=== PATIENT | female | born 1990 | race Caucasian/White ===

== ENCOUNTER 2017-12-02 17:54 | Emergency (ER) | payer BC ==
--- OUTSIDE RECORDS SUMMARY | 2017-12-02 18:02 | XMS REPORT ---
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 Active Onset: 05/22/2015 Acute sinusitis Kevin Gomez M.D. Active Onset: 03/25/2014 Acute bronchitis Henrique Yanes M.D. Active Onset: 01/04/2012 Acute upper respiratory infection Luis Okeefe M.D. Active Family History Date Family Member(s) Problem(s) Comments General Diabetes Mellitus, II PGM, relatives on mom's side. General Breast Cancer maternal aunt in her 50's. General No lung, colon, uterine, cervical or ovarian CA. Father HTN , depression, etoh. Mother Pre-diabetic. First Brother 1/2 brother. healthy. lives in [facility]. First Sister 1/2 sister. endometriosis- hysterectomy Maternal Aunt Breast CA in 50's. now in remission. 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 Smoking Patient has never smoked Exercise Type/Frequency Exercises sporadically. Current Seat Belt/Car Seat Always uses a seat belt Currently Active The patient is currently not sexually active Allergies, Adverse Reactions, Alerts Date Description Reaction Status Severity Comments 10/31/2010 NKDA active 01/12/2010 Seasonal active 01/12/2010 Environmental active Medications Medication Date Status Form Strength Qnty SIG Indications Ordering Provider Rosanne 11/26 Active Tablets 0.5/0.75/ 84tabs Take one Jackie C. 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 to four times daily. Famotidine 07/22 Active Tablets 20mg 60tabs take 1 -2 K21.9 Vicki Barrera tablet by yrn De Luna M.D. daily as needed Amoxicillin/Cla 05/22 Hx Tablets 875-125mg 20tabs 1 by J01.90 Kevin riveroanatanay /2015 mouth Darlow, Potassium - twice a M.D. 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 09/19 evidence /2015 of infection conjunct ivitis Physical 07/22 Hx dyspareun 625.0 Vicki Barrera Therapy - /2014 kiran De Luna Pelvic Floor - evaluate M.DNoé Therapy 09/19 and treat. Gianvi 07/13 Hx Tablets 3-0.02mg 84tabs take as Vicki LNoé /2014 Kathy Waller.Moise 11/26 Loryna 03/25 Hx Tablets 3-0.02mg take as directed [facility] [place] /2014 Azithromycin 03/25 Hx Tablets 250mg 6tabs 2 by 466.0 Henrique Arriola mouth Midura, - today and M.D. 07/22 1 by mouth x 4 days Cheratussin ac 03/25 Hx Syrup 100-10mg/ 120ml 1-2 466.0 Henrique Arriola 5ML teaspoon Midura, - every 4 M.D. 07/22 hours needed Work Excuse 01/03 Hx unable to 462 Viola work due James, - to [facility] 03/25 illness /201301/03/14 through 01/05/14 Pantoprazole 07/12 Hx Tablets 20mg 30tabs 1 po qd 530.[address] Neff, - [facility] 09/19 Azithromycin 01/03 Hx Tablets 250mg 6tabs 2 po 465.9 Smith A. /2011 today and Mee Okeefe - 1 po x 4 Physical 10/23 Hx premenstr Vicki L. Therapy [facility] Walter - crampsammy. M.DNoé 11/05 please evaluate and treat. mail to patient. Rowena Has 07/31 Hx Medical Vicki L. Not Been In illness. Walter, Tess From - M.DNoé 07/16/2010 Due 04/15 To Clarinex D 06/21 Hx 12H Samples 1 po bid 465.9 Vicki L. /2010 Kathy De Luna M.DNoé 07/17 Acetaminophen/C 06/21 Hx Tablets 300-30mg 20tabs 1-2 po at 465.9 Vicki L. odeine # hs. Kathy De Luna M.DNoé 07/17 Please Excuse 06/21 Hx Medical 465.9 Vicki L. From Class /2010 excuse. Walter, 06/18 Through - M.DNoé 06/22/201007/17 Azithromycin 06/21 Hx Tablets 250mg 6tabs 2 po Vicki L. /2010 today. 1 Walter - po daily M.D. 07/17 x Please Excuse 02/02 Hx diagnosed Henrique SanchezNoé Katz From with Polly Yanes. She - Mononucle M.D. Has Been 06/21 osis and will need to rest as much as possible. pu dt Ambien 01/30 Hx Tablets 10mg 30tabs 1 po q hs Vicki Barrera /2009 Kathy Tesfaye M.D. 06/21 School Excuse 10/13 Hx she may Eleazar Pierce /2008 Kathy Sanches M.D. 05/10 if she feels well Zithromax 08/18 Hx Capsules 250mg 6caps 2 Tabs PO 466.0 Wilma X1, Then Aishwarya, - 1 Tab PO EDUCATIONAL DIAGNOSTICIAN 09/26 qd X More Days Note 08/18 Hx 0units Rowena 466.0 Was Seen Kathy Neff By Co EDUCATIONAL DIAGNOSTICIAN 09/26 Today, Missed School And Today Due To Illness, May Not Return Until , 08/21/06 Physical 08/26 Hx treatment Henrique Zeinab Therapy and Farzana, - evaluatio M.Moise 09/26 n LT Hip /2006 And Thigh Pain Gym Excuse 08/26 Hx no gym Henrique Arriola /2005 for 2 Midura, - Weeks Due M.DNoé 09/26 To LT Hip /2006 Injury. Nasonex 05/05 Hx 50mcg 1units 2 Sprays Each Aishwarya, Kathy Nostril EDUCATIONAL DIAGNOSTICIAN 07/12 Claritin 05/05 Hx 10mg 1 qd [facility] 07/12 [facility] Out Of Gym 02/23 Hx Should Be Kaitlin Out Of [employer], - Gym Until Afnp-C 02/27 Next For Rib Pain Out Of Gym 12/29 Hx Should Be Kaitlin Out Of [employer], - Gym Afnp-C 01/02 Through Friday01/01/02 Due To Thumb Injury Birthcontrol Hx use as Unknown Pill /0000 directed - 01/12 Gianvi Hx Tablets 3-0.02mg 28tabs take as Vicki L. /0000 directed Kathy De Luna M.D. 03/25 Medications Administered in Office Medication Date Status Form Strength Qnty SIG Indications Ordering Provider TB Intradermal Administered Injection Wilma Test 014 ANDREW Neff Immunizations CPT Code Status Date Vaccine Reaction Lot # [id number] Given 04/04/2016 Influenza Vac, Quadrivalent, [id number] [address] Given 12/18/2015 Meningococcal Conjugate [id number] Vaccine,Serogroups For Intramuscular Use 24180 Given 12/14/2015 Tdap Tetanus, W Pertussis [id number] 07165 Given 09/20/2013 Varicella (Chicken Pox) 3 inch circular area [id number] Immunization noted today during a ppd read. area is pink and warm but not raised. Pt advised to call if worsens or does not improve. Jumana also looked and advised pt of the same. mp 09/22/13 80770 Given 06/26/2009 Gardasil vacine typs [id number] 6,11,16,18 3 dose schedule 32874 Given 12/03/1996 Oral Poliovirus Immunization 63519 Given 12/03/1996 MMR Virus Immunization 48513 Given 12/03/1996 DTP Immunization Vital Signs Date Vital Result Comment 2017 BP Systolic 114 mmHg BP Diastolic 72 mmHg Heart Rate 78 /min Body Temperature 97.7 F Height 62 inches 5'2" Weight 159.00 lb BMI (Body Mass Index) 29.1 kg/m2 12/04/2016 BP Systolic 116 mmHg BP Diastolic 74 mmHg Heart Rate 66 /min Body Temperature 97.9 F Respiratory Rate 16 /min Height 62 inches 5'2" Weight 157.50 lb BMI (Body Mass Index) 28.8 kg/m2 04/04/2016 BP Systolic 106 mmHg BP Diastolic 78 mmHg Heart Rate 84 /min Body Temperature 97.9 F Height 62 inches 5'2" Weight 152.12 lb BMI (Body Mass Index) 27.8 kg/m2 12/14/2015 BP Systolic 118 mmHg BP Diastolic 80 mmHg Heart Rate 66 /min Body Temperature 98.1 F Respiratory Rate 16 /min Height 62 inches 5'2" Weight 155.00 lb BMI (Body Mass Index) 28.3 kg/m2 05/22/2015 BP Systolic 120 mmHg BP Diastolic 80 mmHg Heart Rate 100 /min Body Temperature 99.1 F Respiratory Rate 20 /min O2 % BldC Oximetry 99 % Height 63 inches 5'3" Weight 146.00 lb BMI (Body Mass Index) 25.9 kg/m2 05/01/2015 BP Systolic 104 mmHg BP Diastolic 62 mmHg Heart Rate 80 /min Body Temperature 98.7 F Respiratory Rate 16 /min Height 63 inches 5'3" Weight 143.50 lb BMI (Body Mass Index) 25.4 kg/m2 09/28/2014 BP Systolic 110 mmHg BP Diastolic 76 mmHg Heart Rate 72 /min Body Temperature 99.0 F Respiratory Rate 16 /min Height 63 inches 5'3" Weight 141.12 lb BMI (Body Mass Index) 25.0 kg/m2 09/21/2014 BP Systolic 104 mmHg BP Diastolic 60 mmHg Heart Rate 64 /min Body Temperature 98.0 F Respiratory Rate 16 /min Height 63 inches 5'3" Weight 144.25 lb BMI (Body Mass Index) 25.5 kg/m2 09/19/2014 BP Systolic 124 mmHg BP Diastolic 80 mmHg Heart Rate 66 /min Body Temperature 97.2 F Respiratory Rate 16 /min Height 63 inches 5'3" Weight 142.50 lb BMI (Body Mass Index) 25.2 kg/m2 09/12/2014 BP Systolic 128 mmHg BP Diastolic 72 mmHg Heart Rate 80 /min Body Temperature 98.8 F Respiratory Rate 16 /min Height 63 inches 5'3" Weight 144.00 lb BMI (Body Mass Index) 25.5 kg/m2 07/22/2014 BP Systolic 120 mmHg BP Diastolic 80 mmHg Heart Rate 80 /min Body Temperature 98.2 F Respiratory Rate 18 /min Height 63 inches 5'3" Weight 151.00 lb BMI (Body Mass Index) 26.7 kg/m2 03/25/2014 BP Systolic 116 mmHg BP Diastolic 80 mmHg Heart Rate 96 /min Body Temperature 98.7 F Respiratory Rate 16 /min Height 62.25 inches 5'2.25" Weight 149.00 lb BMI (Body Mass Index) 27.0 kg/m2 01/03/2014 BP Systolic 110 mmHg BP Diastolic 70 mmHg Heart Rate 72 /min Body Temperature 98.1 F Respiratory Rate 16 /min Height 62.25 inches 5'2.25" Weight 145.00 lb BMI (Body Mass Index) 26.3 kg/m2 09/20/2013 BP Systolic 100 mmHg BP Diastolic 60 mmHg Heart Rate 68 /min Body Temperature 98.1 F Respiratory Rate 16 /min Height 62.25 inches 5'2.25" Weight 148.00 lb BMI (Body Mass Index) 26.8 kg/m2 07/12/2013 BP Systolic 100 mmHg BP Diastolic 70 mmHg Heart Rate 68 /min Body Temperature 98.4 F Respiratory Rate 16 /min Height 62.25 inches 5'2.25" Weight 147.00 lb BMI (Body Mass Index) 26.7 kg/m2 02/05/2012 BP Systolic 116 mmHg BP Diastolic 66 mmHg Heart Rate 72 /min Body Temperature 98.8 F Height 62.25 inches 5'2.25" Weight 135.00 lb BMI (Body Mass Index) 24.5 kg/m2 01/04/2012 BP Systolic 100 mmHg BP Diastolic 60 mmHg Heart Rate 76 /min Body Temperature 98.3 F Respiratory Rate 20 /min Height 62.25 inches 5'2.25" Weight 139.00 lb BMI (Body Mass Index) 25.2 kg/m2 11/06/2011 BP Systolic 110 mmHg BP Diastolic 70 mmHg Heart Rate 70 /min Body Temperature 98.0 F Height 62.25 inches 5'2.25" Weight 136.00 lb BMI (Body Mass Index) 24.7 kg/m2 06/27/2011 BP Systolic 120 mmHg BP Diastolic 70 mmHg Heart Rate 68 /min Body Temperature 98.9 F Height 62.25 inches 5'2.25" Weight 132.00 lb BMI (Body Mass Index) 23.9 kg/m2 05/03/2011 BP Systolic 104 mmHg BP Diastolic 64 mmHg Heart Rate 66 /min Body Temperature 98.6 F Height 62.25 inches 5'2.25" Weight 131.00 lb BMI (Body Mass Index) 23.8 kg/m2 04/15/2011 BP Systolic 100 mmHg BP Diastolic 60 mmHg Heart Rate 72 /min Body Temperature 99.1 F Height 62.25 inches 5'2.25" Weight 131.00 lb BMI (Body Mass Index) 23.8 kg/m2 10/31/2010 BP Systolic 116 mmHg BP Diastolic 72 mmHg Heart Rate 72 /min Body Temperature 98.3 F Height 62.25 inches 5'2.25" Weight 135.00 lb BMI (Body Mass Index) 24.5 kg/m2 Body Mass Index Percentile 77 % Weight Percentile 65th Height Percentile 21 % 07/17/2010 BP Systolic 110 mmHg BP Diastolic 78 mmHg Heart Rate 78 /min Body Temperature 99.7 F Height 62.25 inches 5'2.25" Weight 135.00 lb BMI (Body Mass Index) 24.5 kg/m2 Body Mass Index Percentile 78 % Weight Percentile 66th Height Percentile 21 % 06/21/2010 BP Systolic 112 mmHg BP Diastolic 72 mmHg Heart Rate 76 /min Body Temperature 98.0 F Height 62.25 inches 5'2.25" Weight 135.00 lb BMI (Body Mass Index) 24.5 kg/m2 Body Mass Index Percentile 78 % Weight Percentile 66th Height Percentile 21 % 02/15/2010 BP Systolic 100 mmHg BP Diastolic 60 mmHg Heart Rate 72 /min Body Temperature 98.7 F Height 62.25 inches 5'2.25" Weight 137.00 lb BMI (Body Mass Index) 24.9 kg/m2 Body Mass Index Percentile 80 % Weight Percentile 70th Height Percentile 21 % 01/27/2010 BP Systolic 94 mmHg BP Diastolic 60 mmHg Heart Rate 66 /min Body Temperature 98.6 F Height 62.25 inches 5'2.25" Weight 137.00 lb BMI (Body Mass Index) 24.9 kg/m2 Body Mass Index Percentile 81 % Weight Percentile 71st Height Percentile 21 % 01/12/2010 BP Systolic 100 mmHg BP Diastolic 60 mmHg Heart Rate 64 /min Body Temperature 98.6 F Respiratory Rate 24 /min Height 62.25 inches 5'2.25" Weight 138.00 lb BMI (Body Mass Index) 25.0 kg/m2 Body Mass Index Percentile 82 % Weight Percentile 72nd Height Percentile 21 % 06/26/2009 BP Systolic 116 mmHg BP Diastolic 66 mmHg Heart Rate 72 /min Body Temperature 98.4 F Height 62.25 inches 5'2.25" Weight 131.00 lb BMI (Body Mass Index) 23.8 kg/m2 Body Mass Index Percentile 76 % Weight Percentile 64th Height Percentile 22 % Right Visual Acuity Distance 20/100 w/o correction, pt says she usually wears Left Visual Acuity Distance 20/70 glasses 05/10/2009 Heart Rate 72 /min Body Temperature 98.6 F Weight 134.00 lb Weight Percentile 69th 10/12/2008 BP Systolic 104 mmHg BP Diastolic 64 mmHg Body Temperature 96.0 F Respiratory Rate 99.8 /min Weight 128.00 lb Weight Percentile 63rd 09/26/2006 BP Systolic 110 mmHg BP Diastolic 64 mmHg Heart Rate 78 /min Body Temperature 99.2 F Respiratory Rate 12 /min Weight 113.00 lb Weight Percentile 48th 08/18/2006 BP Systolic 100 mmHg BP Diastolic 60 mmHg Heart Rate 78 /min Body Temperature 99.4 F Weight 109.00 lb Weight Percentile 41st 06/18/2006 BP Systolic 100 mmHg BP Diastolic 60 mmHg Body Temperature 101.2 F Weight 118.00 lb Weight Percentile 60th 08/26/2005 BP Systolic 112 mmHg BP Diastolic 70 mmHg Heart Rate 60 /min Weight 120.00 lb Weight Percentile 72nd 05/05/2002 BP Systolic 102 mmHg BP Diastolic 64 mmHg Heart Rate 86 /min Body Temperature 97.0 F Weight 82.00 lb Weight Percentile 70th 02/23/2002 BP Systolic 108 mmHg BP Diastolic 50 mmHg Heart Rate 72 /min Weight 84.00 lb Weight Percentile 75th 12/24/2001 BP Systolic 112 mmHg BP Diastolic 60 mmHg Heart Rate 80 /min Weight 82.00 lb Weight Percentile 70th 02/08/1998 Body Temperature 97.3 F Weight 50.00 lb Weight Percentile 82nd 01/12/1998 Body Temperature 97.1 F Weight 49.00 lb Weight Percentile 80th 12/13/1997 BP Systolic 84 mmHg BP Diastolic 52 mmHg Heart Rate 98 /min Height 45 inches 3'9" Weight 47.00 lb Weight Percentile 73rd 03/01/1997 Body Temperature 97.9 F Weight 47.00 lb Weight Percentile 90th Results Test Date Test Result H/L Range Note Laboratory test finding 2017 TSH <pending> 0.5-5.0 Laboratory test finding 2017 Rapid Plasma Reagin <pending> (RPR) Qual Test Laboratory test finding 2017 HIV 1&2 Antibody <pending> Negative Screen (Fma) CBC Auto Diff 03/27/2017 White Blood Count 9.9 10^3/uL 3.5-10.8 Red Blood Count 4.14 10^6/uL 4.0-5.4 Hemoglobin 12.5 g/dL 12.0-16.0 Hematocrit 37 % 35-47 Mean Corpuscular Volume 89 fL 80-97 Mean Corpuscular Hemoglobin 30 pg 27-31 Mean Corpuscular HGB Conc 34 g/dL 31-36 Red Cell Distribution Width 12 % 10.5-15 Platelet Count 313 10^3/uL 150-450 Mean Platelet Volume 9 um3 7.4-10.4 Abs Neutrophils 6.7 10^3/uL 1.5-7.7 Abs Lymphocytes 2.2 10^3/uL 1.0-4.8 Abs Monocytes 0.5 10^3/uL 0-0.8 Abs Eosinophils 0.5 10^3/uL 0-0.6 Abs Basophils 0.1 10^3/uL 0-0.2 Abs Nucleated RBC 0 10^3/uL Granulocyte % 67.4 % 38-83 Lymphocyte % 22.2 % Low 25-47 Monocyte % 4.6 % 1-9 Eosinophil % 4.9 % 0-6 Basophil % 0.9 % 0-2 Nucleated Red Blood Cells % 0 Comp Metabolic Panel 03/27/2017 Sodium 139 mmol/L 133-145 Potassium 3.8 mmol/L 3.5-5.0 Chloride 105 mmol/L 101-111 Co2 Carbon Dioxide 28 mmol/L 22-32 Anion Gap 6 mmol/L 2-11 Glucose 107 mg/dL High 70-100 Blood Urea Nitrogen 9 mg/dL 6-24 Creatinine 0.77 mg/dL 0.51-0.95 BUN/Creatinine Ratio 11.7 8-20 Calcium 9.3 mg/dL 8.6-10.3 Total Protein 6.8 g/dL 6.4-8.9 Albumin 4.1 g/dL 3.2-5.2 Globulin 2.7 g/dL 2-4 Albumin/Globulin Ratio 1.5 1-3 Total Bilirubin 0.30 mg/dL 0.2-1.0 Alkaline Phosphatase 67 U/L 34-104 Alt 15 U/L 7-52 Ast 15 U/L 13-39 Egfr Non- 91.3 >60 Egfr 117.5 >60 1 Laboratory test finding 03/24/2017 Surgical Interface SEE RESULT BELOW 2, 3 Order Laboratory test finding 03/24/2017 Clotest SEE RESULT BELOW 4, 5 BCR/Abl Trans 9:22 Fish 12/20/2016 BCR/abl (Fish) Result Normal Summary BCR/abl (Fish) Result Table See Comment 6 BCR/abl (Fish) Specimen Blood BCR/abl (Fish) Referral Reason elevated WBC cou <SEE NOTE> 7 BCR/abl (Fish) Method See Comment 8 BCR/abl Results See Comment 9 BCR/abl (Fish) Interpretation See Comment 10 BCR/abl (Fish) Disclaimer See Comment 11 BCR/abl (Fish) Released By See Comment 12 Jak2 Mutation Analysis 12/20/2016 Jak2 [id number] Mutation See Comment 13 Blood Detection CBC Auto Diff 12/20/2016 White Blood Count 12.2 10^3/uL High 3.5-10.8 Red Blood Count 4.04 10^6/uL 4.0-5.4 Hemoglobin 12.0 g/dL 12.0-16.0 Hematocrit 36 % 35-47 Mean Corpuscular Volume 90 fL 80-97 Mean Corpuscular Hemoglobin 30 pg 27-31 Mean Corpuscular HGB Conc 33 g/dL 31-36 Red Cell Distribution Width 13 % 10.5-15 Platelet Count 371 10^3/uL 150-450 Mean Platelet Volume 8 um3 7.4-10.4 Abs Neutrophils 8.2 10^3/uL High 1.5-7.7 Abs Lymphocytes 3.0 10^3/uL 1.0-4.8 Abs Monocytes 0.6 10^3/uL 0-0.8 Abs Eosinophils 0.3 10^3/uL 0-0.6 Abs Basophils 0.1 10^3/uL 0-0.2 Abs Nucleated RBC 0 10^3/uL Granulocyte % 67.2 % 38-83 Lymphocyte % 24.3 % Low 25-47 Monocyte % 5.2 % 1-9 Eosinophil % 2.7 % 0-6 Basophil % 0.6 % 0-2 Nucleated Red Blood Cells % 0 Laboratory test finding 12/10/2016 C Reactive Protein 6.44 mg/L High < 5.00 14 LDH 144 U/L 140-271 CBC Auto Diff 12/10/2016 White Blood Count 14.2 10^3/uL High 3.5-10.8 Red Blood Count 4.21 10^6/uL 4.0-5.4 Hemoglobin 12.8 g/dL 12.0-16.0 Hematocrit 38 % 35-47 Mean Corpuscular Volume 91 fL 80-97 Mean Corpuscular Hemoglobin 30 pg 27-31 Mean Corpuscular HGB Conc 34 g/dL 31-36 Red Cell Distribution Width 13 % 10.5-15 Platelet Count 349 10^3/uL 150-450 Mean Platelet Volume 8 um3 7.4-10.4 Abs Neutrophils 10.1 10^3/uL High 1.5-7.7 Abs Lymphocytes 2.8 10^3/uL 1.0-4.8 Abs Monocytes 0.9 10^3/uL High 0-0.8 Abs Eosinophils 0.3 10^3/uL 0-0.6 Abs Basophils 0.1 10^3/uL 0-0.2 Abs Nucleated RBC 0.01 10^3/uL Granulocyte % 71.2 % 38-83 Lymphocyte % 20.0 % Low 25-47 Monocyte % 6.0 % 1-9 Eosinophil % 1.9 % 0-6 Basophil % 0.9 % 0-2 Nucleated Red Blood Cells % 0.1 Laboratory test finding 12/10/2016 Erythrocyte Sed Rate 13 mm/Hr 0-14 Rheumatoid Factor <15 IU/mL <15 15 Complete Blood Count 12/05/2016 WBC 9.7 x10^3/UL High 3.6-9.6 RBC 4.16 x10^6/UL 3.90-5.70 HGB 12.7 g/dL 12.1-17.2 HCT 38 % 36-50 MCV 91.0 fL 82.2-97.4 MCH 30.4 pg 27.6-33.3 MCHC 33.5 g/dL 33.0-35.5 RDW 13.1 % 11.6-13.7 PLT 376 x10^3/UL 150-400 MPV 7.2 fL Low 7.4-10.4 Gran # 6.3 x10^3/UL 1.5-7.2 Lymph# 2.9 x10^3/UL 0.7-4.9 Perkins# 0.5 x10^3/UL 0.1-0.9 Gran % 63.9 % 42.2-75.2 Lymph % 30.3 % 20.5-51.1 Perkins% 5.8 % 1.7-9.3 CBC With Differential/Platelet 04/04/2016 WBC 12.9 x10E3/uL High 3.4-10.8 16 RBC 4.13 x10E6/uL 3.77-5.28 16 Hemoglobin 12.2 g/dL 11.1-15.9 16 Hematocrit 36.8 % 34.0-46.6 16 MCV 89 fL 79-97 16 MCH 29.5 pg 26.6-33.0 16 MCHC 33.2 g/dL 31.5-35.7 16 RDW 12.9 % 12.3-15.4 16 Platelets 367 x10E3/uL 150-379 16 Neutrophils 57 % 16 Lymphs 29 % 16 Monocytes 5 % 16 Eos 9 % 16 Basos 0 % 16 Immature Cells TNP 16 Neutrophils (Absolute) 7.4 x10E3/uL High 1.4-7.0 16 Lymphs (Absolute) 3.7 x10E3/uL High 0.7-3.1 16 Monocytes(Absolute) 0.6 x10E3/uL 0.1-0.9 16 Eos (Absolute) 1.1 x10E3/uL High 0.0-0.4 16 Baso (Absolute) 0.1 x10E3/uL 0.0-0.2 16 Immature Granulocytes 0 % 16 Immature Grans (Abs) 0.0 x10E3/uL 0.0-0.1 16 NRBC TNP 16 Hematology Comments: [facility] 16 Laboratory test finding 12/14/2015 TSH 1.570 uIU/mL 0.450-4.500 Vitamin D, 25-Hydroxy 40.4 ng/mL 30.0-100.0 17 PDF [id number] SEE IMAGE Lipid Panel 12/14/2015 Cholesterol, Total 214 mg/dL High 100-199 Triglycerides 92 mg/dL 0-149 HDL Cholesterol 116 mg/dL >39 18 VLDL Cholesterol Jr 18 mg/dL 5-40 LDL Cholesterol Calc 80 mg/dL 0-99 Comment: [facility] Metabolic Panel (14), Comprehensive 12/14/2015 Glucose, Serum 84 mg/dL 65 -99 BUN 11 mg/dL 6-20 Creatinine, Serum 0.71 mg/dL 0.57-1.00 eGFR If NonAfricn Am 120 mL/min/1.73 >59 eGFR If Africn Am 138 mL/min/1.73 >59 BUN/Creatinine Ratio 15 8-20 Sodium, Serum 139 mmol/L 134-144 Potassium, Serum 4.3 mmol/L 3.5-5.2 Chloride, Serum 99 mmol/L 97-108 Carbon Dioxide, Total 23 mmol/L 18-29 Calcium, Serum 9.8 mg/dL 8.7-10.2 Protein, Total, Serum 7.2 g/dL 6.0-8.5 Albumin, Serum 4.5 g/dL 3.5-5.5 Globulin, Total 2.7 g/dL 1.5-4.5 A/G Ratio 1.7 1.1-2.5 Bilirubin, Total 0.3 mg/dL 0.0-1.2 Alkaline Phosphatase, S 74 IU/L 39-117 Ast (Sgot) 18 IU/L 0-40 Alt (SGPT) 18 IU/L 0-32 CBC With Differential/Platelet 12/14/2015 WBC 12.1 x10E3/uL High 3.4-10.8 RBC 4.24 x10E6/uL 3.77-5.28 Hemoglobin 12.4 g/dL 11.1-15.9 Hematocrit 38.0 % 34.0-46.6 MCV 90 fL 79-97 MCH 29.2 pg 26.6-33.0 MCHC 32.6 g/dL 31.5-35.7 RDW 13.5 % 12.3-15.4 Platelets 355 x10E3/uL 150-379 Neutrophils 66 % Lymphs 28 % Monocytes 4 % Eos 2 % Basos 0 % Immature Cells TNP Neutrophils (Absolute) 8.0 x10E3/uL High 1.4-7.0 Lymphs (Absolute) 3.4 x10E3/uL High 0.7-3.1 Monocytes(Absolute) 0.5 x10E3/uL 0.1-0.9 Eos (Absolute) 0.2 x10E3/uL 0.0-0.4 Baso (Absolute) 0.0 x10E3/uL 0.0-0.2 Immature Granulocytes 0 % Immature Grans (Abs) 0.0 x10E3/uL 0.0-0.1 NRBC TNP Hematology Comments: TNP Laboratory test 02/07/2015 Surgical Pathology SEE RESULT BELOW 19 finding CBC Auto Diff 09/22/2014 White Blood Count 11.7 10^3/uL High 4.8-10.8 Red Blood Count 3.92 10^6/uL Low 4.0-5.4 Hemoglobin 11.4 g/dL Low 12.0-16.0 Hematocrit 35 % 35-47 Mean Corpuscular Volume 90 fL 80-97 Mean Corpuscular Hemoglobin 29 pg 27-31 Mean Corpuscular HGB Conc 32 g/dL 31-36 Red Cell Distribution Width 12 % 10.5-15 Platelet Count 293 10^3/uL 150-450 Mean Platelet Volume 9 um3 7.4-10.4 Abs Neutrophils 6.1 10^3/uL 1.5-7.7 Abs Lymphocytes 4.5 10^3/uL 1.0-4.8 Abs Monocytes 0.7 10^3/uL 0-0.8 Abs Eosinophils 0.3 10^3/uL 0-0.6 Abs Basophils 0.1 10^3/uL 0-0.2 Abs Nucleated RBC 0.01 10^3/uL Granulocyte % 51.9 % 38-83 Lymphocyte % 38.7 % 25-47 Monocyte % 6.3 % 1-9 Eosinophil % 2.2 % 0-6 Basophil % 0.9 % 0-2 Nucleated Red Blood Cells % 0 Inr/Protime 09/22/2014 Inr 0.98 0.78-1.07 Laboratory test finding 09/22/2014 Activated Partial 30.4 seconds 26.0- 36.3 Thrombo Time Serum Negative Negative 20 Lactic Acid 1.1 mmol/L 0.5-2.2 Comp Metabolic Panel 09/22/2014 Alkaline Phosphatase 58 U/L 34-104 Sodium 139 mmol/L 133-145 Potassium 3.4 mmol/L Low 3.5-5.0 Chloride 106 mmol/L 101-111 Co2 Carbon Dioxide 26 mmol/L 22-32 Anion Gap 7 mmol/L 2-11 Glucose 81 mg/dL 70-100 Blood Urea Nitrogen 11 mg/dL 6-24 Creatinine 0.98 mg/dL High 0.51-0.95 BUN/Creatinine Ratio 11.2 8-20 Calcium 9.3 mg/dL 8.6-10.3 Total Protein 6.5 g/dL 6.4-8.9 Albumin 4.0 g/dL 3.2-5.2 Globulin 2.5 g/dL 2-4 Albumin/Globulin Ratio 1.6 1-3 Total Bilirubin 0.40 mg/dL 0.2-1.0 Alt 26 U/L 7-52 Ast 20 U/L 13-39 Egfr Non- 71.0 >60 Egfr 91.3 >60 21 Laboratory test finding 09/22/2014 C Reactive Protein 2.09 mg/L < 5.00 22 Stool Occult Blood SEE RESULT BELOW 23 Laboratory test finding 09/20/2014 Stool Culture SEE RESULT BELOW 24 O&P: Giardia/Cryptospor Screen SEE RESULT BELOW 25 E.coli O157:H7 Culture SEE RESULT BELOW 26 CBC Auto Diff 09/20/2014 White Blood Count 15.7 10^3/uL High 4.8-10.8 Red Blood Count 4.64 10^6/uL 4.0-5.4 Hemoglobin 13.4 g/dL 12.0-16.0 Hematocrit 42 % 35-47 Mean Corpuscular Volume 91 fL 80-97 Mean Corpuscular Hemoglobin 29 pg 27-31 Mean Corpuscular HGB Conc 32 g/dL 31-36 Red Cell Distribution Width 13 % 10.5-15 Platelet Count 320 10^3/uL 150-450 Mean Platelet Volume 9 um3 7.4-10.4 Abs Neutrophils 12.9 10^3/uL High 1.5-7.7 Abs Lymphocytes 2.3 10^3/uL 1.0-4.8 Abs Monocytes 0.5 10^3/uL 0-0.8 Abs Eosinophils 0 10^3/uL 0-0.6 Abs Basophils 0 10^3/uL 0-0.2 Abs Nucleated RBC 0.02 10^3/uL Granulocyte % 81.9 % 38-83 Lymphocyte % 14.4 % Low 25-47 Monocyte % 3.3 % 1-9 Eosinophil % 0.2 % 0-6 Basophil % 0.2 % 0-2 Nucleated Red Blood Cells % 0.1 Urinalysis Profile 09/20/2014 Urine Color Straw Urine Appearance Clear Urine Specific [place] 1.008 Low 1.010-1.030 Urine pH 6.0 5-9 Urine Urobilinogen Negative Negative Urine Ketones Trace Negative Urine Protein Negative Negative Urine Leukocytes Negative Negative Urine Blood Negative Negative Urine Nitrite Negative Negative Urine Bilirubin Negative Negative Urine Glucose Negative Negative Comp Metabolic Panel 09/20/2014 Sodium 135 mmol/L 133-145 Potassium 3.9 mmol/L 3.5-5.0 Chloride 103 mmol/L 101-111 Co2 Carbon Dioxide 25 mmol/L 22-32 Anion Gap 7 mmol/L 2-11 Glucose 98 mg/dL 70-100 Blood Urea Nitrogen 9 mg/dL 6-24 Creatinine 0.74 mg/dL 0.51-0.95 BUN/Creatinine Ratio 12.2 8-20 Calcium 9.9 mg/dL 8.6-10.3 Total Protein 7.8 g/dL 6.4-8.9 Albumin 4.8 g/dL 3.2-5.2 Globulin 3.0 g/dL 2-4 Albumin/Globulin Ratio 1.6 1-3 Total Bilirubin 0.50 mg/dL 0.2-1.0 Alkaline Phosphatase 68 U/L 34-104 Alt 17 U/L 7-52 Ast 16 U/L 13-39 Egfr Non- 98.1 >60 Egfr 126.2 >60 27 Laboratory test finding 09/20/2014 C Reactive Protein 5.87 mg/L High < 5.00 28 Comp Metabolic Panel 09/19/2014 Sodium 135 mmol/L 133-145 Potassium 4.2 mmol/L 3.5-5.0 Chloride 104 mmol/L 101-111 Co2 Carbon Dioxide 26 mmol/L 22-32 Anion Gap 5 mmol/L 2-11 Glucose 130 mg/dL High 70-100 Blood Urea Nitrogen 17 mg/dL 6-24 Creatinine 0.87 mg/dL 0.51-0.95 BUN/Creatinine Ratio 19.5 8-20 Calcium 9.4 mg/dL 8.6-10.3 Total Protein 6.6 g/dL 6.4-8.9 Albumin 4.2 g/dL 3.2-5.2 Globulin 2.4 g/dL 2-4 Albumin/Globulin Ratio 1.8 1-3 Total Bilirubin 0.40 mg/dL 0.2-1.0 Alkaline Phosphatase 66 U/L 34-104 Alt 16 U/L 7-52 Ast 17 U/L 13-39 Egfr Non- 81.4 >60 Egfr 104.7 >60 29 CBC Auto Diff 09/19/2014 White Blood Count 14.9 10^3/uL High 4.8-10.8 Red Blood Count 4.19 10^6/uL 4.0-5.4 Hemoglobin 12.2 g/dL 12.0-16.0 Hematocrit 38 % 35-47 Mean Corpuscular Volume 91 fL 80-97 Mean Corpuscular Hemoglobin 29 pg 27-31 Mean Corpuscular HGB Conc 32 g/dL 31-36 Red Cell Distribution Width 12 % 10.5-15 Platelet Count 317 10^3/uL 150-450 Mean Platelet Volume 9 um3 7.4-10.4 Abs Neutrophils 12.2 10^3/uL High 1.5-7.7 Abs Lymphocytes 2.0 10^3/uL 1.0-4.8 Abs Monocytes 0.7 10^3/uL 0-0.8 Abs Eosinophils 0.1 10^3/uL 0-0.6 Abs Basophils 0 10^3/uL 0-0.2 Abs Nucleated RBC 0.01 10^3/uL Granulocyte % 81.5 % 38-83 Lymphocyte % 13.1 % Low 25-47 Monocyte % 4.6 % 1-9 Eosinophil % 0.5 % 0-6 Basophil % 0.3 % 0-2 Nucleated Red Blood Cells % 0 Laboratory test finding 07/22/2014 Thin Prep W/HPV(Lsil/KURT/Asc) SEE NOTE 30 Ua - Micro (Fma) 07/22/2014 Appearance CLEAR Color YELLOW Glucose, Urine (Fma/CMC/CTX) NEG Bilirubin NEG Ketones NEG SP Grav 1.010 Blood NEG PH 7.0 Protein NEG Urobil 0.2 Nitrite NEG Leukocytes (Fma/CMC/Centrex) MODERATE Hyaline - /Lpf Granular - /Lpf WBC (Fma,Centrex) 22-24 RBC - Mucus - /Lpf Epith RARE /Lpf Bacteria 1+ /Hpf Amorphous - /Lpf Crystals, Fluid (Fma/CMC/CTX) - Z#Comments - Comprehensive Metabolic 07/22/2014 Glucose 92 mg/dL 70-100 31 BUN 14 mg/dL 4-18 31 Creatinine, Serum 0.76 mg/dL 0.50-1.10 31 Sodium 139 mmol/L 136-146 31 Potassium 4.8 mmol/L 3.5-5.3 31 Chloride 105 mmol/L 98-110 31 Carbon Dioxide 28 mmol/L 20-32 31 Albumin 4.7 g/dL 3.5-4.7 31 Protein, Total 7.8 g/dL 6.4-8.3 31 Calcium 9.8 mg/dL 8.4-10.4 31 Alkaline Phosphatase 89 U/L 10-118 31 Sgot (Ast) 26 U/L 3-40 31 SGPT (Alt) 22 U/L 7-50 31 Bilirubin, Total 0.40 mg/dL 0.30-1.20 31 Lipid Panel 07/22/2014 Cholesterol, Total 195 mg/dL <200 31 Triglycerides 98 mg/dL <150 31 HDL Cholesterol 91 mg/dL High 40-60 31 Chol/HDL Cholesterol 2.1 31, 32 LDL Cholesterol, Calc. 84 mg/dL 31, 33 LDL/HDL Cholesterol 0.9 31, 34 CBC 07/22/2014 WBC 9.2 x10E3/uL 4.3-10.9 31 RBC 4.27 x10E6/uL 3.80-5.30 31 Hemoglobin 12.7 g/dL 11.8-15.8 31 Hematocrit 39.1 % 35.0-47.0 31 MCV 91.6 fl 82.0-98.0 31 MCH 29.7 pg 27.5-33.5 31 MCHC 32.5 g/dL 32.0-36.0 31 RDW 12.8 % 11.5-14.5 31 Platelet Count 338 x10E3/uL 130-400 31 MPV 10.5 fl 8.6-12.6 31 Segmented Neutrophils 62.6 % 44.0-74.0 31 Lymphocytes 28.3 % 15.0-45.0 31 Monocytes 6.4 % 2.0-13.0 31 Eosinophils 2.3 % 0.0-6.0 31 Basophils 0.4 % 0.0-2.0 31 Neutrophil Absolute 5.8 x10E3/uL 1.4-7.0 31 Lymphocytes Absolute 2.6 x10E3/uL 1.0-3.4 31 Monocyte Absolute 0.6 x10E3/uL 0.2-1.0 31 Eosinophil Absolute 0.2 x10E3/uL 0.0-0.5 31 Basophil Absolute 0.0 x10E3/uL 0.0-0.2 31 Egfr (Calculated) 07/22/2014 Estimated GFR (CALCULATED) 31 Egfr 111 31, 35 Egfr, -Libyan 129 31, 36 Laboratory test finding 07/22/2014 TSH (Thyrotropin) 1.880 uIU/ml 0.350- 5.500 31 Vitamin D, 25 Oh 25.2 ng/mL Low 30.0-100.0 31, 37 Laboratory test finding 01/03/2014 Throat - Beta Strep Fma NEG@48HRS Egfr (Calculated) 08/16/2011 Estimated GFR (CALCULATED) 38 Egfr >60 38, 39 Egfr, -Libyan >60 38, 40 Comprehensive Metabolic 08/16/2011 Glucose 82 mg/dL 70-100 38 BUN 12 mg/dL 4-18 38 Creatinine, Serum 0.86 mg/dL 0.60-1.20 38 Sodium 139 mmol/L 136-146 38 Potassium 4.6 mmol/L 3.5-5.3 38 Chloride 105 mmol/L 98-110 38 Carbon Dioxide 28 mmol/L 20-32 38 Albumin 4.4 g/dL 3.7-5.6 38 Protein, Total 7.2 g/dL 6.3-8.6 38 Calcium 10.0 mg/dL 8.9-10.7 38 Alkaline Phosphatase 68 U/L 50-130 38 Sgot (Ast) 27 U/L 5-30 38 SGPT (Alt) 35 U/L 5-35 38 Bilirubin, Total 0.50 mg/dL 0.30-1.20 38 Lipid Panel 08/16/2011 Cholesterol, Total 203 mg/dL <200 38 Triglycerides 111 mg/dL <150 38 HDL Cholesterol 87 mg/dL High 40-60 38 Chol/HDL Cholesterol 2.3 38, 41 LDL Cholesterol, Calc. 94 mg/dL 38, 42 LDL/HDL Cholesterol 1.1 38, 43 CBC 08/16/2011 WBC 7.8 x10E3/uL 4.3-10.9 38 RBC 4.34 x10E6/uL 3.80-5.30 38 Hemoglobin 13.1 g/dL 11.8-15.8 38 Hematocrit 39.0 % 35.0-47.0 38 MCV 89.9 fl 82.0-98.0 38 MCH 30.2 pg 27.5-33.5 38 MCHC 33.6 g/dL 32.0-36.0 38 RDW 12.2 % 11.5-14.5 38 Platelet Count 301 x10E3/uL 130-400 38 MPV 10.8 fl High 6.5-10.5 38 Segmented Neutrophils 61.1 % 44.0-74.0 38 Lymphocytes 31.7 % 15.0-45.0 38 Monocytes 5.1 % 2.0-13.0 38 Eosinophils 1.8 % 0.0-6.0 38 Basophils 0.3 % 0.0-2.0 38 Neutrophil Absolute 4.8 x10E3/uL 1.4-7.0 38 Lymphocytes Absolute 2.5 x10E3/uL 1.0-3.4 38 Monocyte Absolute 0.4 x10E3/uL 0.2-1.0 38 Eosinophil Absolute 0.1 x10E3/uL 0.0-0.5 38 Basophil Absolute 0.0 x10E3/uL 0.0-0.2 38 PT + PTT No Therpy/Unkn 08/16/2011 PTT 32.7 seconds 23.7-35.5 38 PT (No Therapy/Unknown) 13.3 seconds 11.7-14.5 38, 44 Inr 1.0 38, 45 Laboratory test 08/16/2011 TSH (Thyrotropin) 1.330 uIU/ml 0.350-5.500 38 finding GC/Chlamydia Probe Or 06/27/2011 Chlamydia Amplified NEGATIVE Urine(Ce Probe GC Amplified Probe NEGATIVE Ua - Micro (a) 06/27/2011 Appearance clear Color yellow Glucose, Urine (Fma/CMC/CTX) neg Bilirubin neg Ketones neg SP Grav 1.020 Blood neg PH 7.0 Protein neg Urobil 0.2 Nitrite neg Leukocytes (Fma/CMC/Centrex) trace Hyaline - /Lpf Granular - /Lpf WBC (Fma,Centrex) 3-5 RBC 0-1 Mucus (Fma/CBC/Centrex) - /Lpf Epith few /Lpf Bacteria trace /Hpf Amorphous (Fma/CMC/Centrex) - /Lpf Crystals, Fluid (Fma/CMC/CTX) - Z#Comments - Laboratory test 06/27/2011 Thin Prep SEE NOTE 46 finding W/HPV(Lsil/KURT/Asc) Laboratory test 05/03/2011 Throat Culture Normal 47 finding pharyngea <SEE NOTE> Laboratory test 05/03/2011 Quickstrep NEG Negative finding Laboratory test 04/16/2011 Amylase 55 U/L 20-105 finding Comprehensive 04/16/2011 Albumin 4.5 g/dL 3.8-5.5 Metabolic Prof Alk. Phos. 52 U/L 30-110 Alt (SGPT) 20 U/L 7-35 Ast (Sgot) 18 U/L 5-34 BUN 15 mg/dL 6-26 Calcium 9.3 mg/dL 8.6-10.2 Chloride 105 mEq/L 94-112 Creatinine 1.1 mg/dL 0.6-1.4 Carbon Dioxide 21 mEq/L 21-32 Glucose 93 mg/dL 70-105 Sodium 138 mEq/L 134-149 Total Bilirubin 0.3 mg/dL 0.2-1.3 Total Protein 6.8 g/dL 6.3-8.1 Potassium 4.3 mEq/L 3.6-5.5 Globulin 2.3 g/dL 2.0-4.8 A/G Ratio 1.9 Calc 0.6-2.2 BUN/Creat Ratio 14.0 Calc 8.0-36.0 CBC Electronic (a) 04/16/2011 WBC 6.5 3.6-9.6 RBC 4.25 3.90-5.70 Hemoglobin (Fma/CMC/CTX) 13.3 g/dL 12.1 - 17.2 Hematocrit (Fma/CMC/CTX) 38.0 % 36.1 - 50.3 Platelets 272 10^3/ul 150-400 Lymph% 26.6 20.5-51.1 Mixed% 4.6 Neutrophils % 68.8 Mean Corpuscular Vol 89 82.2-97.4 Mean Corpuscular Hemoglobin 31.3 27.6-33.3 Mean Corpuscular Hemo Concen 35.0 32.0-36.0 RDW 11.7 11.6-13.7 Mean Platelet Volume 8.4 6.5-11.0 Laboratory test finding 04/16/2011 Lipase 13 U/L 1-64 48 Ua - Micro ([facility]) 04/15/2011 Appearance clear Color yellow Glucose neg Bilirubin neg Ketones 15mg/dL SP Grav <1.005 Blood small PH 6.0 Protein neg Urobil 0.2 Nitrite neg Leukocytes (Fma/CMC/Centrex) trace Hyaline - /Lpf Granular - /Lpf WBC ([facility],Centrex) 8-10 RBC 2-3 Mucus - /Lpf Epith occass /Lpf Bacteria trace /Hpf Amorphous - /Lpf Crystals, Fluid (Fma/CMC/CTX) - Z#Comments - Laboratory test finding 10/31/2010 Sed Rate (a/CMC/Centrex) 8 mm CBC Electronic ([facility]) 10/31/2010 WBC 8.3 3.6-9.6 RBC 4.3 3.90-5.70 Hemoglobin (Fma/CMC/CTX) 12.9 g/dL 12.1 - 17.2 Hematocrit (a/CMC/CTX) 38.5 % 36.1 - 50.3 Platelets 359 10^3/ul 150-400 Lymph% 28.5 20.5-51.1 Mixed% 6.7 Neutrophils % 64.8 Mean Corpuscular Vol 90 82.2-97.4 Mean Corpuscular Hemoglobin 30.1 27.6-33.3 Mean Corpuscular Hemo Concen 33.6 32.0-36.0 RDW 11.1 Low 11.6-13.7 Mean Platelet Volume 9 6.5-11.0 Comprehensive Metabolic 07/17/2010 Glucose 83 mg/dL 70-100 49 BUN 9 mg/dL 4-18 49 Creatinine, Serum 0.81 mg/dL 0.60-1.20 49 Sodium 139 mmol/L 136-146 49 Potassium 4.2 mmol/L 3.5-5.3 49 Chloride 104 mmol/L 98-110 49 Carbon Dioxide 29 mmol/L 20-32 49 Albumin 4.6 g/dL 3.7-5.6 49 Protein, Total 7.4 g/dL 6.3-8.6 49 Calcium 9.8 mg/dL 8.9-10.7 49 Alkaline Phosphatase 66 U/L 50-130 49 Sgot (Ast) 27 U/L 5-30 49 SGPT (Alt) 29 U/L 5-35 49 Bilirubin, Total 0.20 mg/dL Low 0.30-1.20 49 Feflex Diff+Morph For CBC4D 07/17/2010 Segmented Neutrophils 69.0 % 44.0- 74.0 49 Band 2.0 % 0.0-4.0 49 Lymphocytes 21.0 % 15.0-45.0 49 Monocytes 6.0 % 2.0-13.0 49 Eosinophils 2.0 % 0.0-6.0 49 Basophils 0.0 % 0.0-2.0 49 Neutrophil Absolute 4.7 x10E3/uL 1.4-7.0 49 Lymphocytes Absolute 1.4 x10E3/uL 1.0-3.4 49 Monocyte Absolute 0.4 x10E3/uL 0.2-1.0 49 Eosinophil Absolute 0.1 x10E3/uL 0.0-0.5 49 Basophil Absolute 0.0 x10E3/uL 0.0-0.2 49 Egfr (Calculated) 07/17/2010 Estimated GFR (CALCULATED) 49 Egfr >60 49, 50 Egfr, -Libyan >60 49, 51 CBC W/Manual Diff 07/17/2010 WBC 6.6 x10E3/uL 4.3-10.9 49 RBC 4.20 x10E6/uL 3.80-5.30 49 Hemoglobin 12.6 g/dL 11.8-15.8 49 Hematocrit 37.5 % 35.0-47.0 49 MCV 89.3 fl 82.0-98.0 49 MCH 30.0 pg 27.5-33.5 49 MCHC 33.6 g/dL 32.0-36.0 49 RDW 12.4 % 11.5-14.5 49 Platelet Count 264 x10E3/uL 130-400 49 MPV 10.3 fl 6.5-10.5 49 Manual Differential PERFORMED 49 Hepatitis Acute Panel 07/17/2010 Hep B Surface NON-REACTIVE Non-Reactive 49 Antigen Hep C Antibody NON-REACTIVE Non-Reactive 49 Hep C S/Co Ratio 0.1 0.0-0.7 49 Hep B Core Antibody Igm NON-REACTIVE Non-Reactive 49 Hep A Antibody Igm NON-REACTIVE Non-Reactive 49 Anti Viral AB Screen 07/17/2010 HIV 1/O/2 Abs-Index Value <1.00 <1.00 49 , 52 HIV 1/O/2 Abs, Qual Non Reactive 49, 53 Ebv Acute Infection Abs 07/17/2010 Ebv Ab Vca, IgM 1.0 AI High 0.0-0.8 49 , 54 Ebv Early Antigen Ab, IgG <0.2 AI 0.0-0.8 49, 55 Ebv Ab Vca, IgG 4.9 AI High 0.0-0.8 49, 56 Ebv Nuclear Antigen Ab, IgG 7.9 AI High 0.0-0.8 49, 57 Interpretation: SEE NOTE 49, 58 CMV Abs Igg/Igm 07/17/2010 CMV Ab, IgG (Cytomegalovirus) <0.9 index 0.0- 0.8 49, 59 CMV Ab, IgM Cytomegalovirus <0.9 index 0.0-0.8 49, 60 Laboratory test finding 07/17/2010 [facility] Test NEGATIVE Negative 49 Laboratory test finding 06/21/2010 Vitamin D, 25 Oh 39.4 ng/mL 32.0- 100.0 61 Laboratory test finding 02/15/2010 Quickstrep NEGATIVE Negative Throat - Beta Strep Fma NEG @ 48HRS CBCM-a 01/27/2010 WBC 8.5 3.6-9.6 RBC 4.07 3.90-5.70 Hemoglobin (Fma/CMC/CTX) 12.9 g/dL 12.1 - 17.2 Hematocrit (Fma/CMC/CTX) 37.4 % 36.1 - 50.3 Mean Corpuscular Vol 91.9 82.2-97.4 Mean Corpuscular Hemoglobin 31.7 27.6-33.3 Mean Corpuscular Hemo Concen 34.5 33.0-36.0 Platelets 247 10^3/ul 150-400 RDW 11.7 11.6-13.7 Mean Platelet Volume 10.2 7.4-10.4 Neutrophil 44 Band 7 Lymphocytes 12 Monocyte 1 Eosinophils 1 Atypical Lymph 35 Comment rbc/plt normal Laboratory test finding 01/27/2010 TSH 2.09 mIU/L 0.50-6.00 Free T4 1.00 ng/dL 0.75-1.54 Laboratory test finding 01/27/2010 Monospot (Fma/Centrex) positive Laboratory test finding 01/12/2010 Antistreptolysin O AB 109.4 IU/mL 0.0- 200.0 Comprehensive Metabolic 08/02/2009 Glucose 83 mg/dL 70-100 62 BUN 16 mg/dL 4-18 62 Creatinine, Serum 0.90 mg/dL 0.60-1.20 62 Sodium 141 mmol/L 136-146 62 Potassium 4.1 mmol/L 3.5-5.3 62 Chloride 106 mmol/L 98-110 62 Carbon Dioxide 27 mmol/L 20-32 62 Albumin 4.1 g/dL 3.7-5.6 62 Protein, Total 6.5 g/dL 6.3-8.6 62 Calcium 9.4 mg/dL 8.9-10.7 62 Alkaline Phosphatase 89 U/L 50-130 62 Sgot (Ast) 25 U/L 5-30 62 SGPT (Alt) 17 U/L 5-35 62 Bilirubin, Total 0.60 mg/dL 0.30-1.20 62 Lipid Panel 08/02/2009 Cholesterol, Total 132 mg/dL <200 62 Triglycerides 49 mg/dL <150 62 HDL Cholesterol 57 mg/dL 40-60 62 Chol/HDL Cholesterol 2.3 62, 63 LDL Cholesterol, Calc. 65 mg/dL 62, 64 LDL/HDL Cholesterol 1.1 62, 65 Laboratory test finding 08/02/2009 TSH (Thyrotropin) 1.350 uIU/ml 0.350- 5.500 62 CBC 08/02/2009 WBC 10.3 x103 4.3-10.9 62 RBC 4.40 x106 3.80-5.30 62 Hemoglobin 13.6 g/dL 11.8-15.8 62 Hematocrit 40.6 % 35.0-47.0 62 MCV 92.3 fl 82.0-98.0 62 MCH 30.9 pg 27.5-33.5 62 MCHC 33.5 g/dL 32.0-36.0 62 RDW 12.8 % 11.5-14.5 62 Platelet Count 281 x103 130-400 62 MPV 10.8 fl High 6.5-10.5 62 Segmented Neutrophils 68.4 % 44.0-74.0 62 Lymphocytes 23.5 % 15.0-45.0 62 Monocytes 6.0 % 2.0-13.0 62 Eosinophils 1.8 % 0.0-6.0 62 Basophils 0.3 % 0.0-2.0 62 Neutrophil Absolute 7.0 x103 1.4-7.0 62 Lymphocytes Absolute 2.4 x103 1.0-3.4 62 Monocyte Absolute 0.6 x103 0.2-1.0 62 Eosinophil Absolute 0.2 x103 0.0-0.5 62 Basophil Absolute 0.0 x103 0.0-0.2 62 Ua - Micro (Fma) 06/26/2009 Appearance clear Color yellow Glucose neg Bilirubin neg Ketones trace SP Grav 1.025 Blood neg PH 7.0 Protein neg Urobil 0.2 Nitrite neg Leukocytes (Fma/CMC/Centrex) small Hyaline - /Lpf Granular - /Lpf WBC (Fma,Centrex) 8-10 RBC 1-2 Mucus - /Lpf Epith occass /Lpf Bacteria trace /Hpf Laboratory test finding 05/10/2009 Quickstrep negative Negative Throat - Beta Strep Fma negative@48hrs Laboratory test finding 10/12/2008 Quickstrep POS Negative Laboratory test finding 09/26/2006 Flu A&B NEGATIVE Negative Laboratory test finding 06/18/2006 Throat - Beta Strep NEG @ 48 HOURS Fma Quickstrep NEGATIVE Negative 1 Because ethnic data is not always readily available, this report includes an eGFR for both -Americans and non- Americans. The National Kidney Disease Education Program (NKDEP) does not endorse the use of the MDRD equation for patients that are not between the ages of 18 and 70, are , have extremes of body size, muscle mass, or nutritional status, or are non- or non-. According to the National Kidney Foundation, irrespective of diagnosis, the stage of the disease is based on the level of kidney function: Stage Description GFR(mL/min/1.73 m(2)) 1 Kidney damage with normal or decreased GFR 90 2 Kidney damage with mild decrease in GFR 60-89 3 Moderate decrease in GFR 30-59 4 Severe decrease in GFR 15-29 5 Kidney failure <15 (or dialysis) 2 [id number] 3 SEE RESULT BELOW Name: ROWENA IRIZARRY : [address]: Ebenezer Vera MD Acct: [id number] Unit: [id number] AGE: 26 Location: ENDOC Re03/24/17 SEX: F Status: DEP REF SPEC: [id number] DAY: 03/24/17-[address] [facility] [address]: Ebenezer Vera MD REQ: [id number] RECD: 03/24/17-9431 STATUS: ARY MORSE DR: Vicki De Luna MD _ ORDERED: LEVEL 4/2 COMMENTS: [id number] FINAL DIAGNOSIS 1. Duodenum, third portion, biopsy: -- Benign small intestinal mucosa with no significant pathologic abnormalities. -- No evidence of villous blunting or increased intraepithelial lymphocytes. 2. Stomach, body, biopsy: -- Body-type gastric mucosa with no significant pathologic abnormalities. -- No evidence of Helicobacter pylori organisms. CLINICAL HISTORY Screening/Surveillance for malignancy in asymptomatic patient. Diet ? non- select, weight up and down. Digestive issues whole life, constipation POST-OPERATIVE DIAGNOSIS Esophagus, stomach and duodenum ? all normal. Conclusions/Plan: Normal EGD; abdominal pain; review for irritable bowel syndrome GROSS DESCRIPTION 1. The specimen is received in formalin labeled, Third Portion Duodenum, and consists of three speckled abraham-pink irregular to polypoid soft tissue fragments ranging from 0.4 x 0.3 x 0.2 cm to 0.6 x 0.3 x 0.2 cm which are entirely submitted in one cassette. 2. The specimen is received in formalin labeled, Biopsy Gastric Body, and consists of two speckled abraham-white irregular to polypoid soft tissue fragments averaging 0.4 by up to 0.3 x 0.2 cm are entirely submitted in one cassette. Signed (signature on file) Viola Guy MD 1111 END OF REPORT * ML=Testing performed at Main Lab DEPARTMENT OF PATHOLOGY, [address] [place] [address] Pedro Luis Long M.D. Director [facility] # [id number] 4 [id number] SEE RESULT BELOW Name: ROWENA IRIZARRY : [address]: Ebenezer Vera MD Acct: [id number] Unit: [id number] AGE: 26 Location: ENDOC Re03/24/17 SEX: F Status: DEP REF SPEC: [id number] DAY: 03/24/17-[address] [facility] [address]: Ebenezer Vera MD REQ: [id number] RECD: 03/24/17 STATUS: COMP PATRICIAHR DR: Vicki De Luna MD _ [facility] ORDERED: Clotest COMMENTS: [id number] Procedure Result Reported Site Clotest Final 03/25/17- 805 ML Clotest Negative * ML - MAIN LAB ([facility]) . END OF REPORT * ML=Testing performed at Main Lab DEPARTMENT OF PATHOLOGY, [address] [place] [address] Pedro Luis Long M.D. Director [facility] # [id number] 6 Abnormality Name Result %Abn Cutoff (%) t(9;22) ABL1/BCR fusion Normal <0.6% 7 elevated WBC count 8 Locus and probes [Strategy;#Nuclei;Class] 9q34(ABL1),22q11.2(BCR) [DFISH;500;ASR] Probe strategy includes: DFISH=dual color, double fusion. 9 nuc miranda(ABL1,BCR)x2[500] Of 500 nuclei, 0% had fusion of BCR and ABL1. 10 The result is within normal limits for the BCR and ABL1 gene regions. 11 Analyte Specific Reagent (ASR). This test was developed using an analyte specific reagent. Its performance characteristics were determined by [facility] in a manner consistent with CLIA requirements. This test has not been cleared or approved by the U.S. Food and Drug Administration. This FISH test does not rule out other chromosome abnormalities. 12 RESULT: Jazz Diaz D.O. Test Performed by: [address] [address] 13 Peripheral blood, JAK2 V617F mutation analysis: Negative for JAK2 V617F. A negative [id number] test result does not exclude the possibility of a myeloproliferative neoplasm (MPN). If clinical suspicion is high for primary myelofibrosis (PMF) or essential thrombocythemia (ET), consider additional testing for CALR Mutational Analysis (test ID: CALR), followed by MPL Exon 10 Mutational Detection (test ID: MPLB, MPLM, or MPLVA), if both [id number] and CALR tests are negative. If clinical suspicion is high for polycythemia vera, the test JAK2 Exon 12 and Other Non-V617F Mutational Detection (test ID: JAKXB or JAKXM) could be considered. Clinicopathologic correlation is recommended for a definitive diagnosis. Signing Pathologist: Melissa Bacon M.D. ADDITIONAL INFORMATION Method summary - JAK2 V617F analysis: Quantitative, allele-specific polymerase chain reaction (PCR) assay was performed using extracted genomic DNA to evaluate for the point mutation causing JAK2 V617F. The analytic sensitivity of this assay has been determined at 0.06% (see [facility] Omnisio Interpretive Handbook for method details). This test was developed and its performance characteristics determined by [facility] in a manner consistent with CLIA requirements. This test has not been cleared or approved by the U.S. Food and Drug Administration. Test Performed by: [address] [address] 14 Acute inflammation: >10.00 15 Test Performed by: [facility] - [address] [address] 16 1 lav 17 Vitamin D deficiency has been defined by the [place] of Medicine and an Endocrine Society practice guideline as a level of serum 25-OH vitamin D less than 20 ng/mL (1,2). The Endocrine Society went on to further define vitamin D insufficiency as a level between 21 and 29 ng/mL (2). 1. IOM ([place] of Medicine). 2010. Dietary reference intakes for calcium and D. [place]: The National Academies Press. 2. Mai HUMMEL, Aliya MARIE, Camilo MONTOYA, et al. Evaluation, treatment, and prevention of vitamin D deficiency: an Endocrine Society clinical practice guideline. JCEM. 2010; 96(7):1911-30. 18 According to ATP-III Guidelines, HDL-C >59 mg/dL is considered a negative risk factor for CHD. 19 SEE RESULT BELOW Name: ROWENA IRIZARRY : [address]: Antoni Sales MD Acct: [id number] Unit: [id number] AGE: 24 Location: ENDOCEC Re02/07/15 SEX: F Status: REG REF SPEC: [id number] DAY: 02/07/15- SUBM DR: Antoni Sales MD REQ: [id number] RECD: 02/07/151256 STATUS: ARY MORSE DR: Vicki De Luna MD _ ORDERED: LEVEL IV FINAL DIAGNOSIS Terminal ileum, biopsy: -- Benign small intestinal mucosa with no significant pathologic abnormalities. -- No evidence of villous blunting or increased intraepithelial lymphocytes. CLINICAL HISTORY Right lower quadrant pain and tenderness; change in bowel habit, rectal bleeding POST-OPERATIVE DIAGNOSIS Colonoscopy to terminal ileum, normal sigmoid, ileocecal valve, colon, rectum , no hemorrhoids; biopsy terminal ileum. Normal exam, no recall GROSS DESCRIPTION The specimen is received in formalin labeled, Biopsy Terminal Ileum, and consists of a 0.7 x 0.5 x 0.1 cm aggregate of abraham-pink irregular soft tissue fragments, which is submitted entirely in one cassette. Signed (signature on file) Viola Guy MD 07/20 1509 END OF REPORT * ML=Testing performed at Main Lab DEPARTMENT OF PATHOLOGY, [address] [place] [address] Pedro Luis Long M.D. Director [facility] # [id number] 20 This test detects intact HCG only and is indicated for the early detection of . 21 Because ethnic data is not always readily available, this report includes an eGFR for both -Americans and non- Americans. The National Kidney Disease Education Program (NKDEP) does not endorse the use of the MDRD equation for patients that are not between the ages of 18 and 70, are , have extremes of body size, muscle mass, or nutritional status, or are non- or non-. According to the National Kidney Foundation, irrespective of diagnosis, the stage of the disease is based on the level of kidney function: Stage Description GFR(mL/min/1.73 m(2)) 1 Kidney damage with normal or decreased GFR 90 2 Kidney damage with mild decrease in GFR 60-89 3 Moderate decrease in GFR 30-59 4 Severe decrease in GFR 15-29 5 Kidney failure <15 (or dialysis) 22 Acute inflammation: >10.00 23 SEE RESULT BELOW Name: ROWENA IRIZARRY : [address]: Kuldip Palacio MD Acct: [id number] Unit: [id number] AGE: 23 Location: ED Re09/22/14 SEX: F Status: REG ER SPEC: [id number] DAY: 09/22/[address] [facility] [address]: Kulwant Henry MD REQ: [id number] RECD: 09/22/14 STATUS: COMP [facility] DR: [facility] Vicki De Luna MD _ SOURCE: STOOL SPDESC: ORDERED: Hemoccult Procedure Result Verified Site Stool Specimen Description Final 09/22/142254 ML Test not performed Stool Occult Blood Final 09/22/142254 ML Stool Occult Blood Negative * ML - MAIN LAB ([facility]) . END OF REPORT * ML=Testing performed at Main Lab DEPARTMENT OF PATHOLOGY, [address] [place] [address] Pedro Luis Long M.D. Director [facility] # [id number] 24 SEE RESULT BELOW Name: ROWENA IRIZARRY : [address]: Tone Melo Acct: [id number] Unit: [id number] AGE: 23 Location: ED Re09/19/14 SEX: F Status: DEP ER SPEC: [id number] DAY: 09/20/[address]: Tone Marcum DO REQ: [id number] RECD: 09/20/14 STATUS: [facility] DR: Vicki De Luna MD _ SOURCE: STOOL SPDESC: ORDERED: E.coli O157:H7, Stool Culture, O P: Gineida/Crypt Procedure Result Verified Site E.coli O157:H7 Culture PENDING Stool Culture PENDING Stool Specimen Description Final 09/20/14- 0353 ML Stool Color Reddish Brown Stool Form Nonformed Stool Consistency Bloody Shiga Toxin 1 2 Final 09/21/14- 1105 ML Organism 1 Negative Shiga Toxin 1 2 Immunochromatographic Assay O P: Giardia/Cryptospor Screen PENDING * ML - MAIN LAB ([facility]) . END OF REPORT * ML=Testing performed at Main Lab DEPARTMENT OF PATHOLOGY, [address] [place] [address] Pedro Luis Long M.D. Director [facility] # [id number] 25 SEE RESULT BELOW Name: ROWENA IRIZARRY : [address]: Tone Melo Acct: [id number] Unit: [id number] AGE: 23 Location: ED Re09/19/14 SEX: F Status: DEP ER SPEC: [id number] DAY: 09/20/[address]: Tone LAIRDQ: [id number] RECD: 09/20/14 STATUS: RES [facility] DR: Vicki De Luna MD _ SOURCE: STOOL SPDESC: ORDERED: E.coli O157:H7, Stool Culture, O P: Giar/Crypt Procedure Result Verified Site E.coli O157:H7 Culture PENDING Stool Culture PENDING Stool Specimen Description Final 09/20/14- 0353 ML Stool Color Reddish Brown Stool Form Nonformed Stool Consistency Bloody Shiga Toxin 1 2 Final 09/21/14- 1105 ML Organism 1 Negative Shiga Toxin 1 2 Immunochromatographic Assay O P: Giardia/Cryptospor Screen Final 09/21/14- 1105 ML Organism 1 Neg Cryptosporidium/Giardia Giardia and cryptosporidium antigen testing performed by enzyme immunoassay. If patient is immunocompromised or has traveled to or is from a developing country, a full ova and parasite exam with microscopic (OPMIC) is recommended. All samples will be held one month in case full ova and parasite testing is requested. Contact the Microbiology Department at [phone]. TEST LIMITATIONS: As with all diagnostic procedures, the results obtained CONTINUED ON NEXT PAGE * ML=Testing performed at Main Lab DEPARTMENT OF PATHOLOGY, [address] [place] [address] Pedro Luis Long M.D. Director [facility] # [id number] Patient: ROWENA IRIZARRY [id number] (Continued) Specimen: [id number] Collected: 09/20/14 Received: 09/20/14 (Continued) Procedure Result Verified Site O P: Giardia/Cryptospor Screen Final (continued) 06/17/15- 1105 should be used in conjunction with other clinical information available the physician, including confirmation by another method. Negative results can occur in samples containing antigen below lower limits of detection of the assay. One negative specimen does not rule out the possibility of a parasitic infection. To improve detection it is recommended that three specimens be collected on separate days over a period of not more than seven days. The use of colonic washes, aspirates or other diluted sample types has not been established and could affect the performance of the assay. Stool samples contaminated with an oily or particulate base (eg. Barium, mineral oil etc.) could interfere with the test and are not recommended. * ML - MAIN LAB ([facility]) . END OF REPORT * ML=Testing performed at Main Lab DEPARTMENT OF PATHOLOGY, [address] [place] [address] Pedro Luis Long M.D. Director [facility] # [id number] 26 SEE RESULT BELOW Name: ROWENA IRIZARRY : [address]: Tone Melo Acct: [id number] Unit: [id number] AGE: 23 Location: ED Re09/19/14 SEX: F Status: DEP ER SPEC: [id number] DAY: 09/20/[address]: Tone LAIRDQ: [id number] RECD: 09/20/14 STATUS: AVRIL MORSE DR: Vicki De Luna MD _ [facility] ORDERED: E.coli O157:H7, Stool Culture, O P: Giar/Crypt Procedure Result Verified Site E.coli O157:H7 Culture Final 09/22/14- 0909 ML E. coli 0157 Culture Negative Stool Culture Final 09/22/14- 0909 ML Result No enteric pathogens isolated Testing for Salmonella, Shigella, Aeromonas, Plesiomonas, Yersinia and Campylobacter are included in a Stool Culture. Vibrio spp not routinely tested for in a stool culture. If testing is desired, please request specifically when placing test order. Sensitivities not routinely performed on stool isolates, as antibiotics may prolong the carriage rate of bacteria. Please contact the microbiology lab if sensitivities are required. Stool Specimen Description Final 09/20/14- 035 ML Stool Color Reddish Brown Stool Form Nonformed Stool Consistency Bloody Shiga Toxin 1 2 Final 09/21/14- 1105 ML Organism 1 Negative Shiga Toxin 1 2 CONTINUED ON NEXT PAGE * ML=Testing performed at Main Lab DEPARTMENT OF PATHOLOGY, [address] [place] [address] Pedro Luis Long M.D. Director [facility] # [id number] Patient: ROWENA IRIZARRY [id number] (Continued) Specimen: [id number] Collected: 09/20/14-327 Received: 09/20/14-335 (Continued) Procedure Result Verified Site Shiga Toxin 1 2 Final (continued) 09/21/14- 1105 Immunochromatographic Assay O P: Giardia/Cryptospor Screen Final 09/21/141104 ML Organism 1 Neg Cryptosporidium/Giardia Giardia and cryptosporidium antigen testing performed by enzyme immunoassay. If patient is immunocompromised or has traveled to or is from a developing country, a full ova and parasite exam with microscopic (OPMIC) is recommended. All samples will be held one month in case full ova and parasite testing is requested. Contact the Microbiology Department at [phone]. TEST LIMITATIONS: As with all diagnostic procedures, the results obtained should be used in conjunction with other clinical information available the physician, including confirmation by another method. Negative results can occur in samples containing antigen below lower limits of detection of the assay. One negative specimen does not rule out the possibility of a parasitic infection. To improve detection it is recommended that three specimens be collected on separate days over a period of not more than seven days. The use of colonic washes, aspirates or other diluted sample types has not been established and could affect the performance of the assay. Stool samples contaminated with an oily or particulate base (eg. Barium, mineral oil etc.) could interfere with the test and are not recommended. * ML - MAIN LAB ([facility]) . END OF REPORT * ML=Testing performed at Main Lab DEPARTMENT OF PATHOLOGY, [address] [place] [address] Pedro Luis Long M.D. Director [facility] # [id number] 27 Because ethnic data is not always readily available, this report includes an eGFR for both -Americans and non- Americans. The National Kidney Disease Education Program (NKDEP) does not endorse the use of the MDRD equation for patients that are not between the ages of 18 and 70, are , have extremes of body size, muscle mass, or nutritional status, or are non- or non-. According to the National Kidney Foundation, irrespective of diagnosis, the stage of the disease is based on the level of kidney function: Stage Description GFR(mL/min/1.73 m(2)) 1 Kidney damage with normal or decreased GFR 90 2 Kidney damage with mild decrease in GFR 60-89 3 Moderate decrease in GFR 30-59 4 Severe decrease in GFR 15-29 5 Kidney failure <15 (or dialysis) 28 Acute inflammation: >10.00 29 Because ethnic data is not always readily available, this report includes an eGFR for both -Americans and non- Americans. The National Kidney Disease Education Program (NKDEP) does not endorse the use of the MDRD equation for patients that are not between the ages of 18 and 70, are , have extremes of body size, muscle mass, or nutritional status, or are non- or non-. According to the National Kidney Foundation, irrespective of diagnosis, the stage of the disease is based on the level of kidney function: Stage Description GFR(mL/min/1.73 m(2)) 1 Kidney damage with normal or decreased GFR 90 2 Kidney damage with mild decrease in GFR 60-89 3 Moderate decrease in GFR 30-59 4 Severe decrease in GFR 15-29 5 Kidney failure <15 (or dialysis) 30 [employer] DEPARTMENT OF PATHOLOGY or Ext. 3763, Fax [employer]LE HAM[employer] OPERATOR CYTOLOGY REPORT Patient: ROWENA IRIZARRY : 1990 AGE: 23 Y SEX: F Acct: [id number] Procedure Date: 07/22/2014 Date Received: 07/25/2014 Requesting Provider: VICKI DE LUNA MD [place] [facility] [id number] Requisition #: [id number] CYTOLOGIC INTERPRETATION: SPECIMEN ADEQUACY SATISFACTORY FOR EVALUATION, ENDOCERVICAL TRANSFORMATION ZONE COMPONENT PRESENT GENERAL CATEGORIZATION NEGATIVE FOR INTRAEPITHELIAL LESIONS OR MALIGNANCY RECOMMENDATIONS Refer to the corresponding web sites for 2012 updated general recommendation guidelines of U.S. preventive service task force for cervical cancer screening, and www.asccp.org//cwwyfvwuz9706. COMMENTS Thin Prep Pap tests are examined with an FDA approved location-guidance system. SPECIMEN SUBMITTED: * * (HPVII) THIN PREP W/HPV (LSIL/ASC/KURT) * * ENDOCERVICAL RELEVANT HISTORY: LMP: 06/13/2014 Prev.normal: 06/2011 Menarche: Y Screened/Rescreened Electronically Signed Sign Out Date/Time: by: by: CORNELL ZAMBRANO, 07/25/2014 14:45 CT(ASCP) Note: The Pap smear is a screening test designed to aid in the detection of premalignant and malignant conditions of the uterine cervix. It is not a diagnostic procedure and should not be used as the sole means of detecting cervical cancer. Both false-positive and false-negative reports do occur. 00 UA Pap Smear performed at [email or web address] Dir: Javier De Leon MD, [address] [facility] [id number] permit review assistant [facility] [place] Dir: Rosanne June MD, [address] [facility] [address] 02 [facility] [place] Dir: Kulwant Brandt MD, [address] [facility] [address] For inquiries regarding HPV test results, the physician may contact Lab [facility]: [phone] . 31 2 SSTS; 1 LAV 32 CHOL/HDL Risk Ratio Levels MALE FEMALE 1/2 X Average 3.4 3.3 Average 5.0 4.4 2 X Average 9.5 7.0 3 X Average 24.0 11.0 33 Optimal under 100 mg/dl Near or above Optimal 100 - 129 mg/dl Borderline High 130 - 159 mg/dl High 160 - 189 mg/dl Very High above 190 mg/dl 34 LDL/HDL Risk Ratio Levels MALE FEMALE 1/2 X Average 1.0 1.5 Average 3.6 3.2 2 X Average 6.3 5.0 3 X Average 8.0 6.1 35 >59 mL/min/1.73m2 36 >59 mL/min/1.73m2 Note: Persistent reduction for 3 months or more in an eGFR <60 mL/min/1.73m2 defines CKD. Patients with eGFR values >=60 mL/min/1.73m2 may also have CKD if evidence of persistent proteinuria is present. Additional information may be found at www.kidney.org/professionals/kdoqi. 37 Vitamin D deficiency has been defined by the [place] of Medicine and an Endocrine Society practice guideline as a level of serum 25-OH vitamin D less than 20 ng/mL (1,2). The Endocrine Society went on to further define vitamin D insufficiency as a level between 21 and 29 ng/mL (2). 1. IOM ([place] of Medicine). 2010. Dietary reference intakes for calcium and D. [place]: The National Academies Press. 2. Mai MF, Aliya MARIE, Camilo MONTOYA, et al. Evaluation, treatment, and prevention of vitamin D deficiency: an Endocrine Society clinical practice guideline. JCEM. 2010; 96(7):1911-30. 38 FASTING; SPLIT SPECIMEN; 1 SST; 1 LAV 2 FROZEN POURED OFF CITRATED PLASMA 39 >59 mL/min/1.73m2 40 >59 mL/min/1.73m2 Note: Persistent reduction for 3 months or more in an eGFR <60 mL/min/1.73m2 defines CKD. Patients with eGFR values >=60 mL/min/1.73m2 may also have CKD if evidence of persistent proteinuria is present. Additional information may be found at www.kidney.org/professionals/kdoqi. 41 CHOL/HDL Risk Ratio Levels MALE FEMALE 1/2 X Average 3.4 3.3 Average 5.0 4.4 2 X Average 9.5 7.0 3 X Average 24.0 11.0 42 Optimal under 100 mg/dl Near or above Optimal 100 - 129 mg/dl Borderline High 130 - 159 mg/dl High 160 - 189 mg/dl Very High above 190 mg/dl 43 LDL/HDL Risk Ratio Levels MALE FEMALE 1/2 X Average 1.0 1.5 Average 3.6 3.2 2 X Average 6.3 5.0 3 X Average 8.0 6.1 44 . 45 INTERNATIONAL NORMALIZED RATIO(INR) INDICATIONS INR RANGE PATIENTS NOT ON ANTICOAGULANT THERAPY * DEEP VENOUS THROMBOSIS 2.0-3.0 PULMONARY EMBOLISM 2.0-3.0 ATRIAL FIBRILLATION 2.0-3.0 PROPHYLAXIS: 2.0-3.0 HIGH-RISK SURGERY TISSUE HEART VALVES ATRIAL FIBRILLATION ACUTE MYOCARDIAL INFARCTION VALVULAR HEART DISEASE MECHANICAL PROSTHETIC VALVE 2.5-3.5 * USE OF INR VALUES SHOULD BE LIMITED TO PATIENTS WHO ARE ON STABLE ORAL ANTICOAGULANT THERAPY. AN INR ABOVE 5.0-5.5 APPEARS TO BE ASSOCIATED WITH AN UNACCEPTABLY HIGH RISK OF BLEEDING. 46 [employer] DEPARTMENT OF PATHOLOGY or Extension 4770 DIES[employer] PILE HAMMER OPERATOR CYTOLOGY REPORT PATIENT: ROWENA IRIZARRY : 1990 AGE: 20 Y SEX: F ACCT: [id number] PROCEDURE DATE: 06/27/2011 DATE RECEIVED: 06/28/2011 REQUESTING PHYSICIAN: VICKI DE LUNA MD [place] [facility] [id number] PATIENT DATA: [id number] SPECIMEN SUBMITTED: * * (HPVII) THIN PREP W/HPV (LSIL/ASC/KURT) * * ENDOCERVICAL RELEVANT HISTORY: LMP: 06/06/2011 Prev.normal: 2008 SPECIMEN ADEQUACY SATISFACTORY FOR EVALUATION, ENDOCERVICAL TRANSFORMATION ZONE COMPONENT PRESENT GENERAL CATEGORIZATION NEGATIVE FOR INTRAEPITHELIAL LESIONS OR MALIGNANCY RECOMMENDATIONS Thin Prep Pap tests are examined with an FDA approved location-guidance system. ADDITIONAL COPIES SENT TO: Screened/Rescreened Electronically Signed Sign Out Date/Time: by: by: KATI BLOOD(ASCP) 07/01/2011 10:58 The Pap smear is a screening test designed to aid in the detection of premalignant and malignant conditions of the uterine cervix. It is not a diagnostic procedure and should not be used as the sole means of detecting cervical cancer. Both false-positive and false-negative reports do occur. Performed @ [facility] [address] [place] [id number] Normal pharyngeal young 48 FASTING; 1 sst 49 1LAV,5SST 50 >59 mL/min/1.73m2 51 >59 mL/min/1.73m2 Note: Persistent reduction for 3 months or more in an eGFR <60 mL/min/1.73m2 defines CKD. Patients with eGFR values >=60 mL/min/1.73m2 may also have CKD if evidence of persistent proteinuria is present. Additional information may be found at www.kidney.org/professionals/kdoqi. 52 Index Value: Specimen reactivity relative to the negative cutoff. 53 Negative: Non-reactive by ICMA Positive: Repeatedly reactive by ICMA. Refer to Western Blot confirmatory test for final interpretation. . Physician should automobile club travel counselor the patient about result significance. Patient information should be kept strictly confidential. 54 Negative <0.9 Equivocal 0.9 - 1.0 Positive >1.0 55 Negative <0.9 Equivocal 0.9 - 1.0 Positive >1.0 56 Negative <0.9 Equivocal 0.9 - 1.0 Positive >1.0 57 Negative <0.9 Equivocal 0.9 - 1.0 Positive >1.0 58 EBV Interpretation Chart . Interpretation VCA-IgM EA-IgG VCA-IgG NA-ABS . Susceptible - - - - Acute Infection + +or- +or- - Convalescent Phase +or- +or- + + Chronic or Reactivated - + + +or- Old Infection - - +or- + + Antibody Present - Antibody Absent 59 Negative <0.9 Equivocal 0.9 - 1.0 Positive >1.0 60 Negative <0.9 Equivocal 0.9 - 1.0 Positive >1.0 61 Recent studies consider the lower limit of 32.0 ng/mL to be a threshold for optimal health. Go BW. J Nutr. 2005 b;135(2):317-22. 62 FASTING; 1 sst, 1 lav 63 CHOL/HDL Risk Ratio Levels MALE FEMALE 1/2 X Average 3.4 3.3 Average 5.0 4.4 2 X Average 9.5 7.0 3 X Average 24.0 11.0 64 Optimal under 100 mg/dl Near or above Optimal 100 - 129 mg/dl Borderline High 130 - 159 mg/dl High 160 - 189 mg/dl Very High above 190 mg/dl 65 LDL/HDL Risk Ratio Levels MALE FEMALE 1/2 X Average 1.0 1.5 Average 3.6 3.2 2 X Average 6.3 5.0 3 X Average 8.0 6.1 Procedures Date CPT Code Description Status Comment 05/22/2015 09803 Pulse Oximetry Completed 02/09/2015 Colonoscopy Completed 02/07/2015 Colonoscopy Completed normal. 09/26/2006 79655 Pulse Oximetry Completed Encounters Type Date Location Provider CPT E/M Dx Office Visit 12/04/2016 6:40p Main Office Vicki De Luna M.D. 78716 D72.829 K58.0 Office Visit 04/04/2016 2:20p [facility] Vicki De Luna M.D. 16191 K58.0 D72.829 Z23 Office Visit 12/14/2015 2:00p [facility] Vicki De Luna M.D. 43944 Z00.00 F43.22 E28.2 N94.1 E55.9 Z23 Office Visit 05/22/2015 3:30p [facility] Kevin Gomez M.D. 46283 J01.90 Office Visit 05/01/2015 2:45p [facility] ANDREW Zavala 03135 R05 Office Visit 09/28/2014 2:20p [facility] Vicki De Luna M.D. 17089 008.69 564.00 Office Visit 09/21/2014 9:45a [facility] Talib Andujar 27748 578.1 787.91 Office Visit 09/19/2014 3:15p [place] [address] 787.91 578.1 Office Visit 09/12/2014 9:10a Main Office Eleazar Lindo M.D. 49439 372.00 Office Visit 07/22/2014 10:00a Main Office Vicki De Luna M.D. 54752 V70.0 V72.31 530.81 256.4 625.0 268.9 791.7 Office Visit 03/25/2014 9:20a Main Office Henrique Yanes M.D. 93775 465.9 466.0 Office Visit 01/03/2014 4:30p [facility] Viola Ramirez, [facility] 68380 462 Office Visit 09/22/2013 1:15p [facility] Wilma Neff, [facility] 24818 V74.1 Office Visit 09/20/2013 9:00a [facility] Wilma Neff, [facility] 45522 V70.3 V05.4 V74.1 Office Visit 07/12/2013 7:15p [place] [address] 564.00 530.81 Office Visit 02/05/2012 2:45p Main Office Paulina LagosMillernp-C 25395 465.9 Office Visit 01/04/2012 12:40p Main Office Luis Okeefe M.D. 44378 465.9 Office Visit 11/06/2011 9:40a Main Office Vicki De Luna M.D. 66852 569.3 Office Visit 06/27/2011 1:20p [facility] Vicki De Luna M.D. 89536 V72.31 256.4 625.0 791.7 Office Visit 05/03/2011 3:20p [facility] Vicki De Luna M.D. 20775 462 472.0 Office Visit 04/15/2011 8:00p Main Office Vicki De Luna M.D. 42101 789.02 599.72 Office Visit 10/31/2010 11:00a Main Office Eleazar Lindo M.D. 68693 789.00 Office Visit 07/17/2010 3:10p Main Office Vicki De Luna M.D. 01539 075 Office Visit 06/21/2010 11:20a [facility] Vicki De Luna M.D. 48654 465.9 268.9 Office Visit 02/15/2010 11:15a Main Office Kaitlin MayTalib 03381 462 465.8 Office Visit 01/27/2010 9:30a Main Office Kaitlin LaloTalib singh 08456 785.6 311 Office Visit 01/12/2010 1:30p [facility] Vicki De Luna M.D. 23554 785.6 Office Visit 06/26/2009 6:30p Main Office ANDREW Duarte 95351 V20.2 V04.89 v04.89 791.7 Office Visit 05/10/2009 8:00p Main Office Talib Carbajal 01047 462 Office Visit 10/12/2008 8:20p Main Office Eleazar Lindo M.D. 05703 462 Office Visit 09/26/2006 3:10p [facility] Kevin Gomez M.D. 71556 780.6 Office Visit 08/18/2006 1:00p Main Office ANDREW Duarte 80044 466.0 Office Visit 06/18/2006 6:15p Main Office Talib Carbajal 06149 462 Office Visit 08/26/2005 6:00p Main Office Henrique Yanes M.D. 86699 843.8 Office Visit 05/05/2002 7:15p Main Office Talib Carbajal 22578 465.9 Office Visit 02/23/2002 1:45p Main Office Talib Andujar 27003 733.6 Office Visit 12/24/2001 4:00p [facility] Talib Andujar 87047 Plan of Care 2017 - Jackie Tai, NPZ00.00 Encntr for general adult medical exam w /o abnormal findingsComments:You are in excellent general health. I recommend regular physical exams with attention to good nutrition and exercise, eye exams every other year, and dental exams twice yearly. ~B_~U_Goals:~u_~b_2 fresh fruits daily3 helpings of fresh green and multicolored vegetablesEat from the whole color spectrum. 40-60 Oz water daily~B_~U_MOVE YOUR BODY.~u_~b_ Bodies were made to be moved. exercise 30 minutes at least 4-5 times [id number] Elevated white blood cell count, unspecifiedComments:will recheck kowndY85.2 Polycystic ovarian syndromeAllNew Medication:Dasetta 0.5 /0.75/ 1-35 mg-mcg
[2017-12-02 18:05] VITALS: BP 108/71
[2017-12-02] MEDS ORDERED: Ketorolac INJ* 30 MG/ML 1 ML VIAL IM ONE (18:21)
--- NOTE | 2017-12-02 18:23 | UC ---
Abdominal Pain Female HPI - HPI Summary HPI Summary: The patient is a 27-year-old female with a 2 day history of right upper quadrant abdominal pain which radiates in a bandlike fashion across her entire upper abdomen. She denies any fever or chills. She denies any nausea vomiting or diarrhea. She denies any UTI symptoms. She denies any vaginal discharge or itching. The pain has been waxing and waning. The most severe has been has been a 7 out of 10. It is currently a 5 out of 10. She has a long history of irritable bowel disease. She has also had GERD symptoms in the past. She has not noticed any relief with Zantac or Tums. - History of Current Complaint Chief Complaint: UCAbdominalPain Stated Complaint: ABD PAIN Time Seen by Provider: 12/02/17 18:12 Hx Obtained From: Patient Onset/Duration: Gradual Onset, Lasting Hours, Lasting Days Severity Initially: Moderate Severity Currently: Moderate Pain Intensity: 5 Pain Scale Used: 0-10 Numeric Location: Discrete At: RUQ Radiates: Yes Radiates to: Back Character: Aching, Burning Aggravating Factor(s): Nothing Alleviating Factor(s): Nothing Associated Signs and Symptoms: Positive: Negative Allergies/Adverse Reactions: Allergies Allergy/AdvReac Type Severity Reaction Status Date / Time No Known Allergies Allergy Verified 12/02/17 18:05 Home Medications: Home Medications Loperamide CAP* [Imodium CAP*] 2 mg PO Q4H PRN 12/02/17 [History Confirmed 12/02] PMH/Surg Hx/FS Hx/Imm Hx Previously Healthy: Yes - Surgical History Surgical History: None - Family History Known Family History: Positive: Cardiac Disease Negative: Hypertension, Diabetes, Renal Disease - Social History Alcohol Use: Weekly Substance Use Type: None Smoking Status (MU): Never Smoked Tobacco Review of Systems Constitutional: Negative Skin: Negative Eyes: Negative ENT: Negative Respiratory: Negative Cardiovascular: Negative Gastrointestinal: Abdominal Pain Genitourinary: Negative Motor: Negative Neurovascular: Negative Musculoskeletal: Negative Neurological: Negative Psychological: Negative Is Patient Immunocompromised?: No All Other Systems Reviewed And Are Negative: Yes Physical Exam Triage Information Reviewed: Yes Appearance: Well-Appearing, No Pain Distress, Well-Nourished Vital Signs: Initial Vital Signs Temp 98.2 F 12/02/17 18:02 Pulse 78 12/02/17 18:02 Resp 18 12/02/17 18:02 BP 108/71 12/02/17 18:02 Pulse Ox 100 12/02/17 18:02 Vital Signs Reviewed: Yes Eyes: Positive: Conjunctiva Clear ENT: Positive: Hearing grossly normal. Negative: Nasal congestion, Nasal drainage, Trismus, Muffled voice, Hoarse voice Neck: Positive: Supple, Nontender Respiratory: Positive: Lungs clear, Normal breath sounds, No respiratory distress, No accessory muscle use Cardiovascular: Positive: RRR, No Murmur Abdomen Description: Negative: Nontender - Tender right upper quadrant., No Organomegaly, CVA Tenderness (R), CVA Tenderness (L), Hernia @, Hepatomegaly, McBurney's Point Tenderness, Peritoneal Signs, Pulsatile Mass, Splenomegaly Musculoskeletal: Positive: ROM Intact, No Edema Neurological: Positive: Alert Skin Exam: Normal Diagnostics - Laboratory Diagnostic Studies Completed/Ordered: UA tr leuks, - HCG Re-Evaluation - Re-Evaluation First Eval Re-Evaluation Time: 19:23 - minimal improvement Change: Improved Abd Pain Female Course/Dx - Course Course Of Treatment: I suggest transfer to ER for further evaluation. She declined this and states she will consider it if symptoms worsen - Differential Dx/Diagnosis Provider Diagnoses: Abdominal pain of uncertain cause Discharge - Sign-Out/Discharge Documenting (check all that apply): Patient Departure All imaging exams completed and their final reports reviewed: No Studies - Discharge Plan Condition: Stable Disposition: HOME Patient Education Materials: Acute Abdominal Pain (ED) Referrals: Vicki Watson MD [Primary Care Provider] - 2 Days (if not better) Additional Instructions: I suggest you go to the ER for increased pain/vomiting/fever or any new or worsening symptoms try [place] 2 tablespoons every 2 hours while awake for 2-3 days You may need to get seen by your gi doctor - Billing Disposition and Condition Condition: STABLE Disposition: Home
== END 2017-12-02 19:34 | disposition home or self-care (01) ==
LOC: UCEAST 17:54
DX: R10.11 Right upper quadrant pain (principal); K58.9 Irritable bowel syndrome, unspecified
CPT/HCPCS: 81003; 84702; 87086; 96372; 99211; G0463; J1885

== ENCOUNTER 2018-05-02 08:52 | Emergency (ER) | payer BC ==
[2018-05-02 09:00] VITALS: BP 115/74
--- NOTE | 2018-05-02 09:00 | UC ---
Respiratory Complaint HPI - HPI Summary HPI Summary: This is a 27 year old with a chief complaint of cough, congestion, sinuses discomfort beginning 2 weeks ago ago. COURSE: PAIN INTENSITY NOW: 10/14 MD Note: Vital signs stable; afebrile Nurses note: two weeks sinus chest congestion, cough, body aches, today has a fever . 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; 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 LIVING CONDITIONS: with family; no illness at home Previously Healthy: Yes - Surgical History Surgical History: None - Family History Known Family History: Positive: Cardiac Disease Negative: Hypertension, Diabetes, Renal Disease - Social History Alcohol Use: Weekly Substance Use Type: None Smoking Status (MU): Never Smoked Tobacco Review of Systems All Other Systems Reviewed And Are Negative: Yes Constitutional: Positive: Negative Skin: Positive: Negative Eyes: Positive: Negative ENT: Positive: Nasal Discharge, Sinus Congestion, Sinus Pain/Tenderness - maxillary Respiratory: Positive: Negative Cardiovascular: Positive: Negative Gastrointestinal: Positive: Negative Genitourinary: Positive: Negative Motor: Positive: Negative Neurovascular: Positive: Negative Musculoskeletal: Positive: Negative Neurological: Positive: Negative Psychological: Positive: Negative Is Patient Immunocompromised?: No Physical Exam - Summary Physical Exam Summary: Appearance: The patient is well-appearing, is in no pain or distress, and is well-nourished. Eyes: Conjunctiva are clear. Pupils are equal and reactive to light and accommodation. Extraocular muscle movement is intact. ENT: The hearing is grossly normal, the pharynx is normal, and the TMs are normal. There is no muffled or hoarse voice. No stridor. Maxillary sinuses tender to palpation. Neck: The neck is supple and there is no lymphadenopathy. Respiratory: The chest is non-tender to palpation and without crepitus. The lungs are clear, there are normal breath sounds, and there is no respiratory distress. No wheezes, rales or rhonchi. Cardiovascular: Heart sounds reveal a regular rate and rhythm. There are no clicks, rubs or murmurs. There are no carotid bruits or thrills. Circulation is grossly intact. Abdomen: The abdomen is soft and non-tender. There is no organomegaly. Bowel sounds are present and within normal limits. No point tenderness at McBurneys point. Musculoskeletal: Strength is within normal limits for age. The patient moves all extremities spontaneously. Neurological: The patient is alert. Motor and sensory examination grossly intact. Speech is normal. Psychological: The patient displays age appropriate behavior. Oriented to person , place and time. Skin: Negative for rashes. Triage Information Reviewed: Yes Vital Signs Reviewed: Yes Respiratory Course/Dx - Course Course Of Treatment: This is a 27 year old with a chief complaint of cough, congestion, sinuses discomfort beginning 2 weeks ago ago. PE: tender maxillary sinuses; lungs clear. DX: bilateral maxillary sinusitis. Negative influenza test. Treatment: amoxicillin for 7 days, twice a day. MEDICATIONS REVIEWED: Medications have been included in the original chart and reviewed. - Differential Dx/Diagnosis Differential Diagnosis/HQI/PQRI: Bronchitis, Influenza, Laryngitis, Lower Resp Infection, Sinusitis Provider Diagnosis: Sinusitis Discharge - Sign-Out/Discharge Documenting (check all that apply): Patient Departure All imaging exams completed and their final reports reviewed: No Studies - Discharge Plan Condition: Stable Disposition: HOME Referrals: Vicki Watson MD [Primary Care Provider] - Additional Instructions: WE DISCUSSED: PLEASE SEEK CARE AT THE EMERGENCY DEPARTMENT IF SYMPTOMS WORSEN OR IF NEW SYMPTOMS DEVELOP. FOLLOW UP WITH YOUR PRIMARY CARE PHYSICIAN IF CONDITION CONTINUES BEYOND 3 DAYS WITHOUT IMPROVEMENT. YOUR DIAGNOSIS IS: SINUSITIS YOUR PRESCRIPTION RECOMMENDATION IS: AMOXICILLIN, TWICE A DAY FOR 10 DAYS. OTHER INSTRUCTIONS: USEFUL WAYS TO FEEL BETTER WITHOUT MEDICATIONS: STAND UNDER SHOWER STREAM TO LOOSEN SECRETIONS. USE A VAPORIZOR. STAY AWAY FROM ANY SMOKE OR IRRITANTS. USE SALINE NASAL SPRAY TO KEEP FLOW OF MUCOUS FROM NOSTRILS AND SINUSES. CONSIDER USING NETI POT TO HELP WITH ALLERGIES AND CONGESTION IN THE NOSE. USE THIS THREE TIMES A WEEK. YOU CAN GET THIS AT [facility] IN [place] OR VARIOUS DRUGSTORES. DRINK LOTS OF WARM FLUIDS USEFUL HOME REMEDIES: WARM WATER GARGLES, WITH TSP OF SALT PER 8 OUNCES OF WATER, GARGLE FOR A FEW SECONDS AND SPIT OUT; GARGLE AND SPIT OUT; EVERY THREE HOURS. AND/OR: WARM WATER OR TEA, HONEY AND LEMON; 2-3 CUPS A DAY. FOR SORE THROAT: KEEP THROAT MOIST WITH LOZENGES; TEA AND HONEY. USE WARM WATER GARGLES 3-4 TIMES A DAY. FOLLOW UP: RE-CHECK IN 1O DAYS, NEEDED, IF YOU ARE NOT IMPROVING. RETURN HERE OR SEE YOUR PHYSICIAN. RE-CHECK SOONER IF INCREASED PAIN OR TEMPERATURE. - Billing Disposition and Condition Condition: STABLE Disposition: Home
[2018-05-02 09:19] LABS: Influenza A Molecular NEGATIVE (Negative); Influenza B Molecular NEGATIVE (Negative)
== END 2018-05-02 09:38 | disposition home or self-care (01) ==
LOC: UCEAST 08:52
DX: J32.0 Chronic maxillary sinusitis (principal)
CPT/HCPCS: 99212; G0463